=== PATIENT | female | born 1975 | race Two or more races ===

== ENCOUNTER 2018-06-30 21:17 | Emergency (ER) | payer SELFPAY ==
[~2018-06-30] VITALS: Ht 165.1 cm; Wt 95.3 kg
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
--- NOTE | 2018-06-30 21:36 | NUR ---
Dr. Casey YUAN MD at bedside for MSE.
[2018-06-30] MEDS ORDERED: CYCLOBENZAPRINE HCL 10 MG TABLET PO ONE (21:45)
[2018-06-30] MEDS ORDERED: ONDANSETRON ODT 4 MG TAB.RAPDIS SL ONE (21:45)
[2018-06-30] MEDS ORDERED: OXYCODONE/APAP 5-325 MG TABLET PO ONE (21:45)
--- NOTE | 2018-06-30 21:46 | NUR ---
Pt signed screen waiver for xray lumbar spine.
[2018-06-30] MEDS ORDERED: CYCLOBENZAPRINE HCL 10 MG TABLET ONE (21:49)
[2018-06-30] MEDS ORDERED: ONDANSETRON ODT 4 MG TAB.RAPDIS ONE (21:49)
[2018-06-30] MEDS ORDERED: OXYCODONE/APAP 5-325 MG TABLET ONE (21:50)
--- NOTE | 2018-06-30 22:57 | NUR ---
Patient discharged to home in stable conditon. Written and verbal after care instructions given. Patient verbalizes understanding of instructions. Pt ambulated out of ER in steady gait with boyfriend. Pt has friend to drive them home. Pt states pain medication is effective.
[2018-06-30 22:58] VITALS: BP 151/89
== END 2018-06-30 22:59 | disposition home or self-care (01) ==
LOC: ER 21:19
DX: S39.012A Strain of muscle, fascia and tendon of lower back, initial encounter (principal); S16.1XXA Strain of muscle, fascia and tendon at neck level, initial encounter; R51 Headache; J45.909 Unspecified asthma, uncomplicated; E11.9 Type 2 diabetes mellitus without complications; Z88.5 Allergy status to narcotic agent; V49.9XXA Car occupant (driver) (passenger) injured in unspecified traffic accident, initial encounter; Y93.89 Activity, other specified; Y92.89 Other specified places as the place of occurrence of the external cause; Y99.8 Other external cause status
CPT/HCPCS: 72100; A4663; Q0162

== ENCOUNTER 2020-08-05 03:46 | Emergency (ER) | payer OTHER ==
[~2020-08-05] VITALS: Ht 165.1 cm; Wt 115.7 kg
--- NOTE | 2020-08-05 04:10 | NUR ---
ct scan technician in room with patient.
[2020-08-05] MEDS ORDERED: KETOROLAC TROMETHAMINE 60 MG INJ IM ONE ×2 (04:15→04:17)
[2020-08-05] MEDS ORDERED: CYCL10TA9 PO (04:37)
[2020-08-05] MEDS ORDERED: CYCLOBENZAPRINE HCL 10 MG TABLET ONE (04:41)
[2020-08-05] MEDS ORDERED: CYCLOBENZAPRINE HCL 10 MG TABLET PO ONE (04:45)
--- NOTE | 2020-08-05 04:50 | NUR ---
pt states great improvement in pain decreasing to 4/10 from interventions provided.
[2020-08-05] MEDS ORDERED: NAPR-1009 PO (04:52)
[2020-08-05 05:00] VITALS: BP 152/113
--- NOTE | 2020-08-05 05:00 | NUR ---
Patient discharged to home in stable condition. Written and verbal after care instructions given. Patient verbalizes understanding of instructions. Stressed follow up or return to ER for worsening s/s. Patient ambulates with a steady gait, received Rx, left with all belongings.
== END 2020-08-05 05:00 | disposition home or self-care (01) ==
LOC: ER 03:51
DX: S63.502A Unspecified sprain of left wrist, initial encounter (principal); W19.XXXA Unspecified fall, initial encounter; Y92.89 Other specified places as the place of occurrence of the external cause; G89.4 Chronic pain syndrome; J45.909 Unspecified asthma, uncomplicated; Z88.5 Allergy status to narcotic agent; R03.0 Elevated blood-pressure reading, without diagnosis of hypertension
CPT/HCPCS: 29125; 73110; 96372; 99283; J1885; A4663